=== PATIENT | female | born 1990 | race Caucasian/White ===

== ENCOUNTER 2023-03-11 11:25 | Observation (INO) | payer MEDICAID ==
[~2023-03-11] VITALS: Ht 152.4 cm; Wt 53.5 kg
[2023-03-11] MEDS ORDERED: CITRIC ACID/SODIUM CITRATE 30 ML UDC PO ONE (13:00)
== END 2023-03-11 14:05 | disposition home or self-care (01) ==
LOC: SPU 11:25
PROVIDERS: ADMIT Obstetrics & Gynecology; ATTEND Obstetrics & Gynecology
DX: O62.9 Abnormality of forces of labor, unspecified (principal); Z3A.29 29 weeks gestation of pregnancy
CPT/HCPCS: G0378

== ENCOUNTER 2023-04-28 01:41 | Observation (INO) | payer MEDICAID | END 2023-04-28 03:20 | disposition left against medical advice (07) | LOC: SPU 01:41 | PROVIDERS: ADMIT Obstetrics & Gynecology; ATTEND Obstetrics & Gynecology | DX: O62.9 Abnormality of forces of labor, unspecified (principal); Z3A.36 36 weeks gestation of pregnancy | CPT/HCPCS: 81002; G0379; G0378 ==